=== PATIENT | male | born 2000 | race Caucasian/White ===

== ENCOUNTER 2020-08-18 20:13 | Emergency (ER) | payer MEDICAID ==
[~2020-08-18] VITALS: Ht 167.6 cm; Wt 52.3 kg
[~2020-08-18 20:13] MED LIST: CLIN60GE TOP
--- NOTE | 2020-08-18 20:30 | NUR ---
CALLED [facility] AND SPOKE WITH DANITZA. CASE# [id number]
[2020-08-18] MEDS ORDERED: morphine 4 MG/ML inj SYRINge IV PRN (21:00)
[2020-08-18] MEDS ORDERED: ondansetron/PF 4mg/2ml inj IV ONE (21:00)
[2020-08-18] MEDS ORDERED: normal saline 1000ML IV soln IVB ONE (21:00)
[2020-08-18] MEDS ORDERED: LORazepam 2 mg/ml vial IV ONE (21:00)
--- NOTE | 2020-08-18 21:10 | NUR ---
PT MOTHER KRISTIE LISSET: [phone]
[2020-08-18] MEDS ORDERED: LIDOcaine 1% 30ml preserv. free vial IJ ONE (21:45)
[2020-08-18] MEDS ORDERED: TETanus/Pertussis (Acell)/Diphther VAC/PF (Tdap-Adult) 0.5ml syringe IMVAC ONE (21:45)
[2020-08-18] MEDS ORDERED: LIDOcaine Viscous 15ml cup MM PRN (21:50)
[2020-08-18] MEDS ORDERED: HYDR-4383 PO (22:50)
[2020-08-18] MEDS ORDERED: CEPH250T PO (22:50)
[2020-08-18] MEDS ORDERED: NAPR-56 PO (22:50)
[2020-08-18 23:09] VITALS: BP 107/65
== END 2020-08-18 23:10 | disposition home or self-care (01) ==
LOC: ER 20:13
DX: S01.521A Laceration with foreign body of lip, initial encounter (principal); H57.11 Ocular pain, right eye; S00.11XA Contusion of right eyelid and periocular area, initial encounter; Y04.2XXA Assault by strike against or bumped into by another person, initial encounter; Y93.89 Activity, other specified; Y92.89 Other specified places as the place of occurrence of the external cause; S00.83XA Contusion of other part of head, initial encounter
CPT/HCPCS: 12011; 70486; 90471; 90715; 96361; 96374; 96375; 99284; J2060; J2270; J2405; J7030

== ENCOUNTER 2021-08-07 16:23 | Emergency (ER) | payer MEDICAID, OTHER ==
[~2021-08-07] VITALS: Ht 170.2 cm; Wt 60.0 kg
[~2021-08-07 16:23] MED LIST changes: +HYDR-4383 PO
[2021-08-07 16:30] VITALS: BP 107/55
[2021-08-07] MEDS ORDERED: LIDOcaine/epinephrine/tetracaine TOPICAL sol 3 ML syringe TOP ONE (17:05)
[2021-08-07] MEDS ORDERED: TETanus/Pertussis (Acell)/Diphther VAC/PF (Tdap-Adult) 0.5ml syringe IMVAC ONE (18:05)
--- NOTE | 2021-08-07 18:27 | NUR ---
Pt wound irrigated with NS and peroxide, staple setup at bedside
== END 2021-08-07 19:03 | disposition home or self-care (01) ==
LOC: ER 16:24
DX: S01.01XA Laceration without foreign body of scalp, initial encounter (principal); Z79.2 Long term (current) use of antibiotics; Z79.899 Other long term (current) drug therapy; W20.8XXA Other cause of strike by thrown, projected or falling object, initial encounter; Y92.512 Supermarket, store or market as the place of occurrence of the external cause; Y99.8 Other external cause status
CPT/HCPCS: 12001; 90471; 90715; 99283

== ENCOUNTER 2022-10-27 22:05 | Emergency (ER) | payer MEDICAID, OTHER ==
[~2022-10-27] VITALS: Ht 170.2 cm; Wt 59.0 kg
[2022-10-27 22:10] VITALS: BP 131/68
[2022-10-27] MEDS ORDERED: dexamethasone sod phosphate 10mg/ml inj IM STA (23:56)
[2022-10-27] MEDS ORDERED: PRED20TA PO (23:59)
[2022-10-27] MEDS ORDERED: CETI10TA19 PO (23:59)
[2022-10-27] MEDS ORDERED: FAMO40TA73 PO (23:59)
[2022-10-28] MEDS ORDERED: famotidine 20mg tablet PO ONE
[2022-10-28] MEDS ORDERED: diphenhydrAMINE 25mg capsule PO ONE
== END 2022-10-28 00:25 | disposition home or self-care (01) ==
LOC: ER 22:06
DX: L50.9 Urticaria, unspecified (principal)
CPT/HCPCS: 96372; 99283; J1100; Q0163

== ENCOUNTER 2025-05-11 13:52 | Emergency (ER) | payer MEDICAID, OTHER ==
[~2025-05-11] VITALS: Ht 170.2 cm; Wt 56.8 kg
[~2025-05-11 13:52] MED LIST changes: +CETI10TA19 PO; +FAMO40TA73 PO
[2025-05-11 13:54] VITALS: BP 131/63; PULSE 58; RESP 18; O2SAT 98
--- NOTE | 2025-05-11 14:15 | Physician Documentation ---
History of Present Illness ~ Chief Complaint: Ear Pain Stated Complaint: R EAR PAIN Time Seen by MD: 14:15 Primary Medical Doctor: [facility] HPI Presents to the emergency department reporting R ear pain has been present for the last couple of days. He denies any chills or fevers, nausea or vomiting. Medication Reconciliation Allergies: Coded Allergies: No Known Allergies (Unverified , 05/11/25) Scheduled Cetirizine HCl (Cetirizine HCl), 1 TAB PO DAILY Clindamycin Phosphate (Cleocin T), 1 APPLIC TOP Q12H Famotidine (Pepcid), 1 TAB PO DAILY Hydrocodone/Acetaminophen ([place] 5-325 Tablet), 1 TAB PO TID PRN Past Medical History Past Medical History: No Pertinent History Past Surgical History: noncontributory Alcohol Use: None Drug Use: none Lives with: Mother Lives In: Home Occupation: employed Review of Systems ROS As stated above in the HPI, otherwise all systems are reviewed and negative. Physical Exam Vital Signs: Temperature: 99.0, Source: Temporal, Heart Rate: 58, Respiratory Rate: 18, BP: 131/63, Pulse Oximetry: 98, Weight: 56.820 Oxygen Flow Rate: 0 Physical Exam General: Alert, no apparent distress. HEENT: PERRL, EOMI, no injection, moist mucous membranes. Normal left canal and TM. Normal right canal but TM erythematous and bulging. Neck: Full range of motion. Respiratory: Lungs clear, no respiratory distress. Chest: No accessory muscle use. Cardiovascular: Regular rate and rhythm, no murmurs. Gastrointestinal: Soft, nontender, nondistended. Bowels sounds present. Extremities: Normal range of motion, no deformity. Neurologic: Oriented x4. Psychiatric: Normal mood and affect. Skin: Normal color, warm and dry. No edema, no ecchymosis. Progress Results/Orders Results/Orders Vital Signs 05/11/25 13:54 Temp 99.0 Pulse 58 Resp 18 B/P (MAP) 131/63 Pulse Ox 98 O2 Flow Rate 0 Medical Decision Making Ear Diff. Dx: Considerations: Include: Abrasion, Cerumen impaction, Foreign body, Otitis externa Departure Time of Disposition: 14:20 Disposition: 01 HOME / SELF CARE / HOMELESS Impression: Primary Impression: Otitis media Qualified Codes: H66.001 - Acute suppurative otitis media without spontaneous rupture of ear drum, right ear Condition: Stable Discharge Instructions: Otitis Media, Adult Additional Instructions: Antibiotics as prescribed, completing the full course. Use [id number] acetaminophen or ibuprofen per label instructions as needed for pain. Follow up with the primary care provider for recheck within the next couple of weeks, or return if worsen anytime. Referrals: NO PRIMARY CARE PROVIDER (PCP) Prescriptions Amox Tr/Potassium Clavulanate (Augmentin 875-125 Tablet) 1 Each Tablet 1 TAB PO Q12H for 7 Days, #14 TAB Prov: YUE AZEVEDO NP 05/11/25 Education Educated: Patient, Family Educated regarding: diagnosis, treatment, prognosis, need for follow up Signature Scribe Signature: x Attestation: The note accurately reflects work and decisions made by me.Yue Alvarez NP 05/11/25 14:20 YUE AZEVEDO NP May 11, 2025 14:15
[2025-05-11] MEDS ORDERED: AMOX-117 PO (14:21)
[2025-05-11 14:26] VITALS: TEMP 99
== END 2025-05-11 14:27 | disposition home or self-care (01) ==
LOC: ER 13:52
DX: H66.91 Otitis media, unspecified, right ear (principal); Z79.899 Other long term (current) drug therapy
CPT/HCPCS: 99283